=== PATIENT | female | born 1955 ===

== ENCOUNTER 2018-09-17 04:47 | Outpatient (CLI) | payer BC | END 2018-09-17 23:59 | disposition home or self-care (01) | LOC: DIABETIC 04:47 | PROVIDERS: ATTEND Specialist | DX: E11.9 Type 2 diabetes mellitus without complications (principal); Z71.3 Dietary counseling and surveillance | CPT/HCPCS: G0108 ==

== ENCOUNTER 2018-10-16 02:47 | Outpatient (CLI) | payer BC | END 2018-10-16 23:59 | disposition home or self-care (01) | LOC: DIABETIC 02:47 | PROVIDERS: ATTEND Specialist | DX: E11.9 Type 2 diabetes mellitus without complications (principal); Z79.899 Other long term (current) drug therapy | CPT/HCPCS: G0108 ==